=== PATIENT | male | born 1990 | race Two or more races ===

== ENCOUNTER 2021-02-18 10:47 | Emergency (ER) | payer OTHER ==
[~2021-02-18] VITALS: Ht 177.8 cm; Wt 80.7 kg
[2021-02-18 16:40] VITALS: BP 137/85
== END 2021-02-18 16:42 | disposition home or self-care (01) ==
LOC: ER 10:47
DX: M62.838 Other muscle spasm (principal); R51.9 Headache, unspecified; M54.2 Cervicalgia; M25.551 Pain in right hip; V49.49XA Driver injured in collision with other motor vehicles in traffic accident, initial encounter; Y93.89 Activity, other specified; Y92.410 Unspecified street and highway as the place of occurrence of the external cause; Y99.8 Other external cause status
CPT/HCPCS: 70450; 72100; 72125; 73502